=== PATIENT | male | born 1985 | race Caucasian/White ===

== ENCOUNTER 2016-05-29 08:50 | Day surgery (SDC) | payer OTHER ==
[~2016-05-29] VITALS: Ht 177.8 cm; Wt 148.7 kg
[~2016-05-29 08:50] MED LIST: ACCUPRIL20TAB PO; ALDACTONE 25MG25 M1 PO; APRESOLINE 25MG25 MG PO; ASPIRIN 81M81 MG/TA2 PO; CARDIZEM 30MG T30 MG PO; LASIX 20MG TABL20 MG PO; MOTRIN 800800 MG/TAB PO; NEURONTIN300 MG/CAP PO; NIACOR500 MG PO; NORVASC 10MG10 MG PO; PRILOSEC 20MG20 MG PO; PROAIR HFA0.09 MG/AC IH; ROBAXIN 50500 MG/TAB PO; ZANTAC 150MG T150 MG PO
[2016-05-29] MEDS ORDERED: CARDIZEM120 MG PO (09:07)
[2016-05-29 09:14] VITALS: BP 134/82; PULSE 91; TEMP 97.4
[2016-05-29 11:00] VITALS: BP 122/77; PULSE 94; TEMP 98.1
[2016-05-29 11:15] VITALS: BP 101/82; PULSE 88
[2016-05-29 11:30] VITALS: BP 124/79; PULSE 90
== END 2016-05-29 11:55 | disposition home or self-care (01) ==
LOC: SDCO 08:50
DX: D12.2 Benign neoplasm of ascending colon (principal); D12.3 Benign neoplasm of transverse colon; K64.1 Second degree hemorrhoids; R19.5 Other fecal abnormalities; K62.89 Other specified diseases of anus and rectum
CPT/HCPCS: J2250; J3010; J7030

== ENCOUNTER → 2017-03-29 | Outpatient (CLI) | payer SELFPAY ==
[~2017-03-29] MED LIST changes: +CARDIZEM120 MG PO
== END ==
LOC: ZCOL.LAB 14:52
DX: I87.2 Venous insufficiency (chronic) (peripheral) (principal); L97.911 Non-pressure chronic ulcer of unspecified part of right lower leg limited to breakdown of skin

== ENCOUNTER → 2017-06-14 | Outpatient (CLI) | payer OTHER | LOC: COL.VAS 12:09 | DX: I83.012 Varicose veins of right lower extremity with ulcer of calf (principal) ==

== ENCOUNTER 2017-06-15 09:15 | Outpatient (RCR) | payer OTHER ==
[~2017-06-15 09:15] MED LIST changes: -LASIX 20MG TABL20 MG PO; +LASIX 40MG TABL40 MG PO
[2017-06-25] MEDS ORDERED: EPA FISH OIL1 SGL PO (07:12)
[2017-06-25] MEDS ORDERED: NIACIN FLUSH F400 MG PO (07:14)
[2017-06-25] MEDS ORDERED: ATARAX 25MG25 MG/TAB PO (07:15)
== END 2017-08-02 08:29 | disposition home or self-care (01) ==
LOC: WSPT 09:15
DX: I87.8 Other specified disorders of veins (principal); L97.919 Non-pressure chronic ulcer of unspecified part of right lower leg with unspecified severity

== ENCOUNTER → 2017-07-02 | Outpatient (CLI) | payer OTHER ==
[~2017-07-02] MED LIST changes: +ATARAX 25MG25 MG/TAB PO; +EPA FISH OIL1 SGL PO; +NIACIN FLUSH F400 MG PO
== END ==
LOC: COL.VAS 09:53
DX: Z09 Encounter for follow-up examination after completed treatment for conditions other than malignant neoplasm (principal); I82.401 Acute embolism and thrombosis of unspecified deep veins of right lower extremity; I83.91 Asymptomatic varicose veins of right lower extremity; Z98.890 Other specified postprocedural states